=== PATIENT | male | born 1965 | race Caucasian/White ===

== ENCOUNTER 2018-08-01 12:02 | Emergency (ER) | payer OTHER, BC ==
[~2018-08-01] VITALS: Ht 188 cm; Wt 117.9 kg
== END 2018-08-01 13:50 | disposition home or self-care (01) ==
LOC: ED 12:02
DX: S83.92XA Sprain of unspecified site of left knee, initial encounter (principal); X50.1XXA Overexertion from prolonged static or awkward postures, initial encounter
CPT/HCPCS: 73560; 99283